=== PATIENT | male | born 1980 | race Caucasian/White ===

== ENCOUNTER 2024-10-01 02:51 | Emergency (ER) | payer BC, SELFPAY ==
[2024-10-01 03:09] VITALS: BP 134/85; BP 134/91; PULSE 102; PULSE 89; RESP 18; TEMP 36.8; O2SAT 100; O2SAT 99; BMI 27.5
--- NOTE | 2024-10-01 03:26 | ED.MALEGU ---
HPI - Male Genitourinary General Chief complaint: Urogenital-Male Stated complaint: bleeding from genitals post operative Time Seen by Provider: 10/01/24 03:10 Source: patient Mode of arrival: ambulatory Limitations: no limitations History of Present Illness ED Provider: HPI Narrative: Patient is status post penile fracture at the surgical repair done on 09/23 comes here for increased pain and swelling slight amount of bleed at the suture line which he woke him up from the sleep very small amount of blood was noticed at the suture line no penile bleed Related Data Allergies Allergy/AdvReac Type Severity Reaction Status Date / Time No Known Allergies Allergy Verified 10/01/24 03:16 Review of Systems Review of Systems: Yes all other systems are reviewed and are negative [facility] Social History Social History Alcohol intake: never Smoked in Last 30 Days: No Use of substances other than those prescribed or required for medical reasons: No Advance Directives: No Advance Directives Information Provided: Yes Physical Exam Vital Signs: Vital Signs: Last Vital Signs Temp 98.2 F 10/01/24 06:17 Pulse 90 10/01/24 06:17 Resp 14 10/01/24 06:17 BP 114/77 10/01/24 06:17 Pulse Ox 100 10/01/24 06:17 O2 Del Method Room Air 10/01/24 06:17 BMI result Body Mass Index 27.5 Appearance: Alert. Oriented X3. No acute distress. Eyes: no pallor or icterus ENT: Pharynx normal Oral Mucosa moist tympanic membrane intact no erythema, Neck: Normal inspection. Neck supple. CVS: Normal heart rate and rhythm. Pulses normal. Respiratory: No respiratory distress. Equal air entry bilateral, Abd: soft, not tender : Diffuse soft swelling of the penis surgical suture line intact with small amount of blood Skin: Skin warm and dry. Normal skin color. Normal skin turgor. Neuro: Oriented X 3. Medical Decision Making Medical Decision Making [facility] Narrative: Patient is post penile fracture comes here for small amount of bleeding from the suture line as he woke up from the sleep likely he had erection which cause the bleeding from the suture line swelling is soft case discussed with Dr. Buenrostro advised patient to follow up with his urologist as scheduled call him in today am Discharge Plan Discharge Clinical Impression: Postop check Patient Disposition: Home, Self-Care Instructions: Wound Dehiscence (ED) Additional Instructions: Likely you have minor dehiscence of the sutures causing the bleed Follow up with your surgeon No acute treatment needed at this time Interventions: ED Discharge Assessment Last Done: 10/01/24 06:17 Discharge Date/Time: 10/01/24 06:17 Print Language: Faroese
[2024-10-01 05:50] VITALS: BP 114/77; PULSE 90; RESP 14; TEMP 36.8; O2SAT 100
[2024-10-01 06:17] VITALS: BP 114/77; PULSE 90; RESP 14; TEMP 36.8; O2SAT 100
== END 2024-10-01 06:17 | disposition home or self-care (01) ==
PROVIDERS: Emergency Provider Internal Medicine
DX: R31.9 Hematuria, unspecified (principal); L76.22 Postprocedural hemorrhage of skin and subcutaneous tissue following other procedure
CPT/HCPCS: 99283; 99284